=== PATIENT | female | born 1995 | race Caucasian/White ===

== ENCOUNTER 2017-08-08 17:24 | Emergency (ER) | payer SELFPAY ==
[2017-08-08 17:30] VITALS: BP 120/76; PULSE 81; RESP 18; TEMP 97.8; O2SAT 100
[2017-08-08] MEDS ORDERED: Bacitracin 500 Units/gm Oint Foilpak UD TOP ONE (17:34)
--- NOTE | 2017-08-08 17:36 | C.PDOC ---
History Of Present Illness 21 y/o female presents to ED for evaluation of cut to left thumb sustained yesterday at 9am with knife. Patient reports bleeding was controlled and denies change in sensation or any other complaints at this time. Tetanus vaccine is UTD. Time Seen by Provider: 08/08/17 17:32 Chief Complaint (Nursing): Abnormal Skin Integrity History Per: Patient History/Exam Limitations: no limitations Onset/Duration Of Symptoms: Days Current Symptoms Are (Timing): Still Present Location Of Injury: Left: Hand Past Medical History Reviewed: Historical Data, Nursing Documentation, Vital Signs Vital Signs: Last Vital Signs Temp 97.8 F 08/08/17 17:26 Pulse 81 08/08/17 17:26 Resp 18 08/08/17 17:26 BP 120/76 08/08/17 17:26 Pulse Ox 100 08/08/17 19:53 - Medical History PMH: No Chronic Diseases Surgical History: No Surg Hx Family History: States: No Known Family Hx - Social History Hx Alcohol Use: No Hx Substance Use: No - Immunization History Hx Tetanus Toxoid Vaccination: Yes (2015) Hx Influenza Vaccination: No Hx Pneumococcal Vaccination: No Review Of Systems Constitutional: Negative for: Fever, Chills Gastrointestinal: Negative for: Nausea, Vomiting Musculoskeletal: Positive for: Hand Pain Skin: Negative for: Rash Neurological: Negative for: Weakness, Numbness Physical Exam - Physical Exam Appears: Non-toxic, No Acute Distress Skin: Warm, Dry, Other (0.5cm skin avulsion on left thumb finger pad ) Head: Atraumatic, Normacephalic Eye(s): bilateral: Normal Inspection Oral Mucosa: Moist Neck: Normal ROM, Supple Chest: Symmetrical Extremity: Normal ROM, Capillary Refill (<2 seconds) Pulses: Left Radial: Normal, Right Radial: Normal Neurological/Psych: Oriented x3, Normal Motor, Normal Sensation ED Course And Treatment O2 Sat by Pulse Oximetry: 100 (RA) Pulse Ox Interpretation: Normal Medical Decision Making Medical Decision Making: patient with small 0.5cm skin avulsion or left thumb. No need for laceration repair. Wound cleansed and bacitracin applied. Disposition - Disposition Referrals: [facility] [Outside] [facility] [employer] [facility] [Outside] Disposition: HOME/ ROUTINE Disposition Time: 17:50 Condition: GOOD Additional Instructions: Keep area clean and dry. May wash gently with soap and water, do not use alcohol or iodine solution. Change dressing 1-2 times daily. Return to ER if fever occurs, redness or swelling around wound, pus in the wound. Instructions: Skin Avulsion (ED) Forms: [facility] (Kosovan) - POA Present On Arrival: None - Clinical Impression Clinical Impression: Avulsion of fingertip - PA / BONDERIZER / Resident Statement MD/DO has reviewed & agrees with the documentation as recorded. - Scribe Statement The provider has reviewed the documentation as recorded by the Scribcaro Garcia All medical record entries made by the Gerson were at my direction and personally dictated by me. I have reviewed the chart and agree that the record accurately reflects my personal performance of the history, physical exam, medical decision making, and the department course for this patient. I have also personally directed, reviewed, and agree with the discharge instructions and disposition.
[2017-08-08] MEDS ORDERED: Bacitracin 500 Units/gm Oint Foilpak UD ONE (17:37)
== END 2017-08-08 17:56 | disposition home or self-care (01) ==
LOC: C.ER 17:24
DX: S61.102A Unspecified open wound of left thumb with damage to nail, initial encounter (principal); W26.0XXA Contact with knife, initial encounter

== ENCOUNTER 2017-12-07 13:26 | Emergency (ER) | payer OTHER ==
[2017-12-07 14:14] VITALS: TEMP 98.6
[2017-12-07 15:07] LABS: HCG,QUALITATIVE URINE NEGATIVE (NEGATIVE)
--- NOTE | 2017-12-07 15:07 | C.PDOC ---
History Of Present Illness Patient is 21 year old female with LMP (12/06/17) with no past medical, who presents to the ED with complaint of lower back pain that started this morning. Patient admits to nausea and two episodes of vomiting this morning. Patient admits to mild dysuria, nausea and vomiting but denies any fever, chills, abnormal vaginal discharge. Patient reports that she is not sexually active. (Flavia Jackson) History Per: Patient History/Exam Limitations: no limitations Onset/Duration Of Symptoms: Hrs Current Symptoms Are (Timing): Still Present Severity: Mild Pain Scale Rating Of: 3 Location: Lower lumbar Recent travel outside of the [place]: No Additional History Per: Patient Time Seen by Provider: 12/07/17 14:43 Chief Complaint (Nursing): Back Pain Past Medical History Family History: States: Unknown Family Hx - Social History Hx Alcohol Use: No Hx Substance Use: No - Immunization History Hx Tetanus Toxoid Vaccination: Yes (2015) Hx Influenza Vaccination: No Hx Pneumococcal Vaccination: No Vital Signs: Last Vital Signs Temp 98.6 F 12/07/17 14:13 Pulse 80 12/07/17 16:19 Resp 18 12/07/17 16:19 BP 100/60 12/07/17 16:19 Pulse Ox 99 12/07/17 16:19 Review Of Systems Constitutional: Negative for: Fever, Chills Cardiovascular: Negative for: Chest Pain, Palpitations, Light Headedness Respiratory: Negative for: Cough, Shortness of Breath Gastrointestinal: Positive for: Nausea, Vomiting Genitourinary: Positive for: Dysuria, Other (Patient is currently on her menstrual cycle ). Negative for: Frequency, Hematuria, Vaginal Discharge, Vaginal Bleeding Physical Exam - Physical Exam Appears: No Acute Distress Skin: Normal Color Head: Atraumatic, Normacephalic Oral Mucosa: Moist Tongue: Normal Appearing Lips: Normal Appearing Teeth: Normal Dentition Cardiovascular: Rhythm Regular Respiratory: Normal Breath Sounds, No Decreased Breath Sounds, No Accessory Muscle Use, No Rales, No Rhonchi Gastrointestinal/Abdominal: Normal Exam, Bowel Sounds, Soft, No Tenderness Back: Normal Inspection, No CVA Tenderness, No Decreased ROM Extremity: Normal ROM, No Tenderness, No Calf Tenderness Neurological/Psych: Oriented x3, Normal Speech, Normal Cognition ED Course And Treatment O2 Sat by Pulse Oximetry: 98 Medical Decision Making Medical Decision Making: patient well appearing c/o urinary symptoms, no fever, (+) emesis but tolerating po's now, no abd. pain. Will discharge patient home and advise follow up in 2 days, return if worse. Medications prescribed for home. (John Vaz) Disposition Discussed With DrRoshni: John Vaz - Disposition Disposition Time: 04:03 - Disposition Disposition: HOME/ ROUTINE Condition: GOOD Additional Instructions: Please discharge patient home Please take Flexeril 10mg PO Q8H as needed for muscle spasms Please take Motrin 400mg PO Q6H as needed for pain Please follow up with [facility] in order to establish health care and to follow up Please return tp the hospital if symptoms worsens over the next two days Prescriptions: Cyclobenzaprine [Cyclobenzaprine HCl] 10 mg PO Q8H PRN #10 tab PRN Reason: Muscle Spasm Ibuprofen [Motrin] 400 mg PO Q6H PRN #10 tab PRN Reason: Pain, Severe (8-10) Instructions: Muscle Strain (DC) Forms: [facility] (Eritrean) - Clinical Impression Clinical Impression: Low back strain, Spasm of muscle of lower back
[2017-12-07 15:22] LABS: SQUAMOUS EPITHIAL 1 /hpf (0-5); URINE BILIRUBIN NEGATIVE (NEGATIVE); URINE BLOOD 2+ (NEGATIVE); URINE CLARITY Hazy (Clear); URINE COLOR Yellow (YELLOW); URINE GLUCOSE (UA) NORMAL (Normal); URINE LEUKOCYTE ESTERASE TRACE Leu/uL (Negative); URINE PROTEIN 1+ mg/dL (NEGATIVE)
[2017-12-07 16:20] VITALS: BP 100/60; PULSE 80; RESP 18; O2SAT 99
== END 2017-12-07 16:20 | disposition home or self-care (01) ==
LOC: C.ER 13:26
DX: S39.012A Strain of muscle, fascia and tendon of lower back, initial encounter (principal); X58.XXXA Exposure to other specified factors, initial encounter; Y92.9 Unspecified place or not applicable; M62.830 Muscle spasm of back